=== PATIENT | male | born 2000 | race Hispanic/Latino ===

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

== ENCOUNTER → 2020-01-31 | Outpatient (CLI) | payer OTHER ==
--- NOTE | 2020-02-01 07:52 | REP ---
LUMBOSACRAL SPINE SERIES, FIVE VIEWS: Five views lumbosacral spine are performed. No compression fracture is seen. There is minimal retrolisthesis of L4 on L5. There is no spondylolysis. There is mild disc space narrowing at L4-5. Posterior elements are intact. Sacroiliac joints are unremarkable. IMPRESSION: No evidence of fracture. Mild retrolisthesis of L4 on L5 with mild disc space narrowing. The retrolisthesis is likely degenerative in etiology. Electronically Signed by Ronnie Garcia MD 02/01/2020 01:20 P
== END ==
LOC: M LRY 16:33
PROVIDERS: ATTEND Nurse Practitioner Family
DX: M51.36 Other intervertebral disc degeneration, lumbar region (principal)
CPT/HCPCS: 72110; G0463